=== PATIENT | female | born 1990 | race Hispanic/Latino ===

== ENCOUNTER 2022-05-22 19:16 | Emergency (ER) | payer OTHER ==
[~2022-05-22] VITALS: Ht 165.1 cm; Wt 78.5 kg
[~2022-05-22 19:16] MED LIST: MULTI-VITAMIN1 EACH PO
[2022-05-22] MEDS ORDERED: VALTREX1000 MG PO (19:42)
== END 2022-05-22 20:17 | disposition home or self-care (01) ==
LOC: ER 19:21
DX: A60.00 Herpesviral infection of urogenital system, unspecified (principal)
CPT/HCPCS: 99282